=== PATIENT | female | born 1980 | race Caucasian/White ===

== ENCOUNTER 2017-04-09 09:51 | Emergency (ER) | payer OTHER ==
--- NOTE | ~2017-04-09 | CT4 ---
[facility] A Service of [facility] RADIOLOGY TEXT RESULTS PATIENT: TOM GARCIA LOCATION: [facility] : 76 UNIT #: [id number] AGE: [address]: Janes Johnson MD SEX: F ORDER DR: [id number] [facility] [address] [place] [address] [place], [place] [address] [id number] E MR#: [id number] Acc #: [id number] NAME: TOM GARCIA : 1980 SEX: F STUDY DATE/TIME: 04/09/2017 13:08 UNIT: [facility] ROOM: STUDY DESCRIPTION: CT Abd and Pelv Wo Cont Attending Physician: Janes Johnson M.D. Ordering Physician: Janes Johnson M.D. Primary Care Physician: [facility] IMAGING REPORT This report is preliminary unless electronic signature is present EXAM CT abdomen and pelvis. INDICATIONS Left-sided abdominal pain for [address] of the abdomen and pelvis without contrast. Coronal and sagittal reconstructions were obtained. This CT exam was performed with one or more of the following radiation dose reduction techniques: automatic exposure control, adjustment of mA and/or kV according to patient size, and iterative reconstruction. COMPARISON Abdominal radiograph 09/24/2016. FINDINGS ABDOMEN: The solid abdominal organs are within normal limits. There is no hydronephrosis. No urinary calculi. The bowel is not dilated. Gallbladder is not distended. There are occasional colonic diverticula. No diverticulitis. The appendix is normal. Uterus and ovaries are within normal limits. Bladder is unremarkable. No enlarged pelvic or inguinal lymph nodes. No acute osseous abnormalities. 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 IMPRESSION 1. No acute findings of the abdomen and pelvis. 2. Grade 2 anterolisthesis of L5 on S1 secondary L5 pars [facility] A Service of [facility] RADIOLOGY TEXT RESULTS PATIENT: TOM GARCIA LOCATION: [facility] : 76 UNIT #: [id number] AGE: [address]: Janes Johnson MD SEX: F ORDER DR: interarticularis defects. Dictated by... Khang Hodge M.D. THIS IS AN ELECTRONICALLY VERIFIED REPORT Khang Hodge M.D. at 04/10/2017 10:25 PM LUCINA/aliya TD: 04/09/2017 13:37 JOB #: [id number] MEDICAL IMAGING REPORT Page 1 of 1 COPY
[~2017-04-09 09:51] MED LIST: ALBUTEROL17 GM INH; DEPO-PROVER150 MG/ML INJ; FLEXERIL10 MG PO; IMODIUM2 MG PO; LOMOTIL TABLET1 TAB PO; MACROBID100 MG PO; MEDROL4 MG/DOSE- PO; NO MEDICATIONS; PHENERGAN DM1 ML PO; PHENERGAN25 M1 PO; ROBAXIN500 MG PO; VOLTAREN75 MG PO; ZITHROMAX PO; ZITHROMAX1 G/PKT PO; ZOFRAN PO; ZOLOFT; [UNRECOGNIZED DRUG - REMARK]
[2017-04-09 10:50] LABS: BASOPHIL% 0.7 % (0-2.5); DIFF IND NO; EOSINOPHIL# 0.1 X10e3 (0-0.7); EOSINOPHIL% 1.1 % (0.0-7.0); HEMATOCRIT 43.5 % (35.0-45.0); HEMOGLOBIN 14.1 gm/dL (12.0-16.0); LYMPHOCYTE# 1.3 X10e3 (1.0-3.5); LYMPHOCYTE% 19.9 % (17.0-45.0); MEAN CELL VOLUME 82.4 FL (83-96); MEAN CORPUSCULAR HEMOGLOBIN 26.7 PG (28-34); MEAN CORPUSCULAR HGB CONC 32.4 g/dL (30-36); MEAN PLATELET VOLUME 8.9 FL (6.5-11.5); MONOCYTE# 0.4 X10e3 (0-1.0); MONOCYTE% 6.5 % (3.0-12.0); NEUTROPHIL# 4.6 X10e3 (1.5-7.1); NEUTROPHIL% 71.8 % (40-75); PLATELET COUNT 193 X10e3 (140-420); RED BLOOD COUNT 5.28 X10e (3.90-5.30); RED CELL DISTRIBUTION WIDTH 13.9 % (11.0-15.5); WHITE BLOOD COUNT 6.3 X10e3 (4.0-10.5)
[2017-04-09 11:15] LABS: URINE SOURCE CLEAN CATCH
[2017-04-09 11:16] LABS: ALBUMIN SERUM 4.1 g/dL (3.5-5.0); BILIRUBIN, DIRECT 0.1 mg/dL (0.0-0.2); BILIRUBIN,INDIRECT 0.8 mg/dL (0.0-0.9); BILIRUBIN,TOTAL 0.9 mg/dL (0.2-2.0); BUN/CREATININE RATIO 13.75; CALCIUM SERUM 9.4 mg/dL (8.4-10.2); CREATININE SERUM 0.8 mg/dL (0.6-1.4); GLOM FILT RATE Estimated 93.6 mL/min (>60); POTASSIUM 4.5 mmol/L (3.5-5.1); PROTEIN TOTAL SERUM 7.5 g/dL (6.0-8.3)
[2017-04-09 11:26] LABS: URINE APPEARANCE CLEAR; URINE BILIRUBIN NEG (NEG); URINE BLOOD 2+ (NEG); URINE COLOR YELLOW; URINE GLUCOSE NEG (NEG); URINE KETONE NEG (NEG); URINE LEUKOCYTE ESTERASE 1+ (NEG); URINE NITRATE NEG (NEG); URINE PH 7.5 (5-8); URINE PROTEIN NEG (NEG); URINE SPECIFIC GRAVITY 1.008 (1.003-1.035); URINE UROBILINOGEN 0.2 MG/DL (NEG)
[2017-04-09 11:29] LABS: CULTURE INDICATED? YES; URBCS1 AUWI 0-2 /[HPF] (0-2); URINE BACTERIA AUWI 1+ (NEGATIVE); URINE SQUAMOUS EPITHELIAL CELL FEW /[HPF]; UWBCS1 AUWI 0-2 (0-5)
== END 2017-04-09 13:55 | disposition home or self-care (01) ==
LOC: CED 09:51
DX: R10.9 Unspecified abdominal pain (principal); Z88.5 Allergy status to narcotic agent; Z88.6 Allergy status to analgesic agent; Z88.8 Allergy status to other drugs, medicaments and biological substances
CPT/HCPCS: 36415; 74176; 80048; 80076; 81003; 83690; 83880; 84703; 85025; 87086; 87088; 87186; 96374; 99284; J1170